=== PATIENT | female | born 1955 | race Caucasian/White ===

== ENCOUNTER → 2024-08-14 07:13 | Outpatient (CLI) | payer MEDICARE, OTHER, SELFPAY ==
--- NOTE | 2024-08-14 07:16 | DI.MRI.S_ITS ---
PROCEDURE: MR KNEE LT WO CON INDICATIONS: LEFT KNEE PAIN TECHNIQUE: Noncontrast sagittal PD fast spin echo and T2 fast spin echo with fat saturation, sagittal 3-D FLASH with fat saturation; coronal T1 spin echo and PD fast spin echo with fat saturation, and axial PD fast spin echo with fat saturation through the knee. COMPARISON: None. FINDINGS: Image quality: Excellent. Menisci: In the medial meniscus, there is an undersurface horizontal tear at the junction of the meniscus body and the posterior horn. There is subjacent mild marrow edema at the medial tibial plateau. No extrusion of the medial meniscus body. The lateral meniscus is unremarkable. Cruciate ligaments: The anterior and posterior cruciate ligaments appear intact. Medial structures: Grade 1 sprain of the MCL. Lateral structures: The lateral collateral ligament, long and short heads of the biceps femoris tendon appear intact. The popliteus tendon appears normal; the popliteofibular ligament appears intact. The posterosuperior and anteroinferior popliteomeniscal fascicles appear intact. The arcuate and fabellofibular ligaments appear intact, on either side of the lateral inferior geniculate artery. Iliotibial band appears normal. Anterior structures: The quadriceps tendon is intact. Mild tendinosis of the proximal and the distal patellar tendon. The patellofemoral ligaments are intact. Alignment of the patellofemoral compartment is anatomic. Bones and cartilage: Mild chondral irregularity of the patella. High-grade chondral fissuring of the central trochlea with mild subchondral marrow edema. In the medial compartment, the cartilage is well maintained. In the lateral compartment the cartilage is well maintained as well. No acute fracture. 1.1 cm T1 and T2 hypointense lesion in the distal femur diaphysis with mild surrounding marrow edema. Joint space: Small knee effusion. Moderate sized, partially ruptured popliteal cyst. Popliteal vasculature is unremarkable. IMPRESSION: 1. Tear of the medial meniscus with subjacent mild reactive marrow edema at the medial tibial plateau. 2. Grade 1 sprain of the MCL. 3. Mild chondrosis of the patellofemoral compartment. 4. 1.1 cm T1 and T2 hypointense lesion in the distal femur diaphysis with mild surrounding marrow edema, incompletely characterized. Recommend further evaluation with MR knee with intravenous contrast. Please note the appearance is atypical for bone island given presence of marrow edema. Dictated by: Elizabeth Espinoza M.D. on 08/14/2024 at 10:42 Approved by: Elizabeth Espinoza M.D. on 08/14/2024 at 10:59
== END ==
PROVIDERS: Referring Provider Orthopaedic Surgery Adult Reconstructive Orthopaedic Surgery; Visit Provider Orthopaedic Surgery Adult Reconstructive Orthopaedic Surgery
DX: S83.242A Other tear of medial meniscus, current injury, left knee, initial encounter (principal); S83.412A Sprain of medial collateral ligament of left knee, initial encounter; M25.462 Effusion, left knee; S86.812A Strain of other muscle(s) and tendon(s) at lower leg level, left leg, initial encounter; M22.42 Chondromalacia patellae, left knee; M25.562 Pain in left knee; M89.9 Disorder of bone, unspecified
CPT/HCPCS: 73721

== ENCOUNTER → 2025-04-08 16:39 | Outpatient (CLI) | payer MEDICARE, OTHER, SELFPAY ==
--- NOTE | 2025-04-08 16:41 | DI.RAD.S_ITS ---
PROCEDURE: XR CHEST 2V INDICATIONS: Cough. TECHNIQUE: 2 views of the chest were acquired. COMPARISON: None. FINDINGS: Surgical changes and devices: None. Lungs and pleura: Lungs are clear. No pleural effusions or pneumothorax. Mediastinum: Mediastinal contours are normal. Heart size is normal. Bones and chest wall: No suspicious bony abnormalities. Soft tissues appear unremarkable. IMPRESSION: No acute cardiopulmonary pathology. Dictated by: Kamari Westbrook M.D. on 04/08/2025 at 17:28 Approved by: Kamari Westbrook M.D. on 04/08/2025 at 17:28
== END ==
LOC: RAD 16:40
PROVIDERS: Referring Provider Registered Nurse; Visit Provider Registered Nurse
DX: R05.1 Acute cough (principal)
CPT/HCPCS: 71046